=== PATIENT | female | born 1960 | race African-American/Black ===

== ENCOUNTER → 2023-05-07 09:20 | Outpatient (CLI) | payer BC, SELFPAY ==
--- NOTE | ~2023-05-07 | MR_ITS ---
EXAMINATION: MR ankle LT wo con DATE: 05/07/2023 10:19 INDICATION: Lateral sided left ankle and hindfoot pain. TECHNIQUE: Magnetic resonance imaging (MRI) of the left ankle was performed without intravenous contr ast. Sequences included sagittal, coronal, and axial proton-density weighted fast spin echo without a nd with fat saturation. COMPARISON: None. FINDINGS: Medial ankle ligaments: Small osteophyte along the medial malleolar attachment of the otherwise normal appearing deep deltoid ligament which could be either enthesopathic or sequela of old trauma. Deep deltoid ligament . Super ficial deltoid ligament as well as the spring ligament complex are normal. Lateral ankle ligaments: The anterior and posterior inferior tibiofibular ligaments are normal. The anterior talofibular, calc aneofibular and posterior talofibular ligaments are normal. Tendons: Additional tiny enthesophytes at the distal aspect of the normal Achilles tendon. The peroneus longus and brevis tendons are normal. The tibialis anterior and extensor hallucis longus and extensor digit orum longus tendons are normal. The tibialis posterior, flexor digitorum longus and flexor hallucis l ongus tendons are normal. Plantar fascia: Tiny enthesophyte along the calcaneal insertion of the normal plantar aponeurosis. Bones/other: Bone alignment is normal. Normal marrow signal throughout with no fracture, reactive edema or patholo gic marrow replacing process. Joint spaces are normal. No cortical erosions. Fluid: Physiologic amount of fluid in the joint spaces. There is mild subcutaneous edema about the medial an d lateral aspects of the ankle and extending over the dorsum of the foot. IMPRESSION: 1. Small enthesophytes at the calcaneal insertions of the otherwise normal kidneys tendon and plantar aponeurosis as well as at the medial malleolar insertion of the otherwise normal deep deltoid ligame nt. Reviewed, dictated and finalized at location A. IMPRESSION: 1. Small enthesophytes at the calcaneal insertions of the otherwise normal kidn eys tendon and plantar aponeurosis as well as at the medial malleolar insertion of the otherwise normal deep deltoid ligament.
== END ==
DX: M25.572 Pain in left ankle and joints of left foot (principal); M76.62 Achilles tendinitis, left leg; M77.52 Other enthesopathy of left foot and ankle
CPT/HCPCS: 73721